=== PATIENT | female | born 1960 | race Caucasian/White ===

== ENCOUNTER → 2017-01-15 | Outpatient (CLI) | payer BC ==
[~2017-01-15] MED LIST: AMLO5TAB4 PO; TRAM50TA2 PO
[2017-01-15 11:49] LABS: ADD SCAN DIFF NO
[2017-01-15 12:04] LABS: BASOPHILS % 0.5 % (0.0-2.0); EOSINOPHILS # 0.1 10^3/ul (0.0-0.5); EOSINOPHILS % 1.2 % (0.0-7.0); HEMOGLOBIN 13.1 g/dl (12.0-16.0); LYMPHOCYTES # 2.8 10^3/ul (0.8-2.9); MEAN CORPUSCULAR HEMOGLOBIN 28.6 pg (29.0-33.0); MEAN CORPUSCULAR VOLUME 89.5 fl (82.0-101.0); MEAN PLATELET VOLUME 10.4 fl (7.4-10.4); MONOCYTE # 0.6 10^3/ul (0.3-0.9); MONOCYTES % 9.2 % (0.0-11.0); NEUTROPHIL # 2.6 10^3/ul (1.6-7.5); NEUTROPHILS % 42.8 % (39.0-77.0); PLATELET COUNT 238 10^3/UL (140-415); RED BLOOD COUNT 4.58 10^6/ul (4.20-5.40); RED CELL DISTRIBUTION WIDTH 13.9 % (11.5-14.5); WHITE BLOOD COUNT 6.1 10^3/ul (4.8-10.8)
[2017-01-15 12:21] LABS: ALBUMIN 4.3 g/dl (3.3-4.9); ALBUMIN/GLOBULIN RATIO 1.19; BILIRUBIN,INDIRECT 0.1 mg/dl (0-1.1); BILIRUBIN,TOTAL 0.1 mg/dl (0.2-1.3); CALCIUM 9.4 mg/dl (8.4-10.2); CHOL/HDL RATIO 2.9 RATIO; CREATININE 0.76 mg/dl (0.44-1.00); POTASSIUM 4.3 mmol/L (3.5-5.1); TOTAL PROTEIN 7.9 g/dl (6.1-8.1)
--- NOTE | 2017-01-15 17:52 | RADRPT ---
PROCEDURE: XR Hand, bilateral. CLINICAL INDICATION: Pain. Fibromyalgia. TECHNIQUE: Right and left hand x-rays, three views. COMPARISON: None. FINDINGS: Right hand: Bony mineralization appears normal. Bony cortices are intact. Joint spaces are well ma intained. There is no evidence of articular/periarticular erosion. Soft tissues are unremarkable. Left hand: Bony mineralization appears normal. Bony cortices are intact. Joint spaces are well tisha ntained. There is no evidence of articular/periarticular erosion. Soft tissues are unremarkable. IMPRESSION: Unremarkable right and left hand x-rays. RPTAT: HLST .Amy Chávez MD, Date Time Electronically viewed and signed by .Amy Chávez MD, on 01/15/2017 17:52 .T/
--- NOTE | 2017-01-15 17:54 | RADRPT ---
PROCEDURE: XR Wrist. CLINICAL INDICATION: Pain. Fibromyalgia. TECHNIQUE: Right and left wrist x-rays, 4 views. COMPARISON: None. FINDINGS: Right wrist: Bone density appears normal. Bony cortices are intact. Joint spaces are well maintai ghulam. There is no evidence of articular/periarticular erosion. Carpal bone alignment is normal. So ft tissues are unremarkable. Left wrist: Bone density appears normal. Bony cortices are intact. Joint spaces are well maintaine d. There is no evidence of articular/periarticular erosion. Carpal bone alignment is normal. Soft tissues are unremarkable. IMPRESSION: Unremarkable right and left wrist x-rays. RPTAT: HLST .Amy Chávez MD, Date Time Electronically viewed and signed by .Amy Chávez MD, on 01/15/2017 17:54 .T/
--- NOTE | 2017-01-15 17:58 | RADRPT ---
PROCEDURE: XR Knee. CLINICAL INDICATION: Pain. Fibromyalgia. TECHNIQUE: Left knee x-rays, three views. COMPARISON: None. FINDINGS: Bony mineralization is normal. Bony cortices are intact. Mild moderate medial compartment joint sp martha narrowing is observed. Tiny osteophytes project from the tibial spines. Soft tissues are unrema rkable. There is no evidence of large joint effusion. IMPRESSION: Degenerative changes of the left knee as evidenced by mild moderate medial compartment joint space n arrowing and tiny tibial spine osteophytes. RPTAT: HLST .Amy Chávez MD, MD Date Time Electronically viewed and signed by .Amy Chávez MD, MD on 01/15/2017 17:57 .T/
--- NOTE | 2017-01-15 17:59 | RADRPT ---
PROCEDURE: XR Knee. CLINICAL INDICATION: Pain. Fibromyalgia. TECHNIQUE: Right knee x-rays, three views. COMPARISON: None. FINDINGS: Bony mineralization is normal. Bony cortices are intact. Mild moderate medial compartment joint sp martha narrowing is observed. Soft tissues are unremarkable. There is no evidence of large joint effus ion. IMPRESSION: Mild moderate medial compartment joint space narrowing. RPTAT: HLST .Amy Chávez MD, MD Date Time Electronically viewed and signed by .Amy Chávez MD, on 01/15/2017 17:58 .T/
[2017-01-16 13:27] LABS: ANA SCREEN NEGATIVE (NEGATIVE)
== END | disposition home or self-care (01) ==
LOC: LAB 10:37
PROVIDERS: ATTEND Internal Medicine
DX: M06.9 Rheumatoid arthritis, unspecified (principal); D64.9 Anemia, unspecified; M79.7 Fibromyalgia; M19.90 Unspecified osteoarthritis, unspecified site
CPT/HCPCS: 73110; 73130; 73560; 80053; 80061; 85025; 85651; 86038; 86430

== ENCOUNTER 2017-04-27 15:13 | Emergency (ER) | payer BC ==
[~2017-04-27] VITALS: Wt 81.0 kg
[2017-04-27] MEDS ORDERED: ONDANSETRON 4 MG INJ IV STA (15:34)
[2017-04-27] MEDS ORDERED: HYDROmorphONE 1 MG/ML SYG IV STA (15:34)
[2017-04-27] MEDS ORDERED: SOD CHLORIDE 0.9% 1,000 ML IV STA (15:34)
[2017-04-27 15:51] LABS: BASOPHIL # 0.1 10^3/ul (0.0-0.1); BASOPHILS % 0.8 % (0.0-2.0); EOSINOPHILS % 0.3 % (0.0-7.0); HEMATOCRIT 44.3 % (37.0-47.0); HEMOGLOBIN 14.1 g/dl (12.0-16.0); LYMPHOCYTES # 2.5 10^3/ul (0.8-2.9); LYMPHOCYTES % 41.3 % (15.0-51.0); MEAN CORPUSCULAR HEMOGLOBIN 28.1 pg (29.0-33.0); MEAN CORPUSCULAR HGB CONC 31.8 g/dl (32.0-37.0); MEAN CORPUSCULAR VOLUME 88.4 fl (82.0-101.0); MONOCYTE # 0.6 10^3/ul (0.3-0.9); MONOCYTES % 10.1 % (0.0-11.0); NEUTROPHIL # 2.9 10^3/ul (1.6-7.5); NEUTROPHILS % 47.2 % (39.0-77.0); PLATELET COUNT 265 10^3/UL (140-415); RED BLOOD COUNT 5.01 10^6/ul (4.20-5.40); RED CELL DISTRIBUTION WIDTH 13.7 % (11.5-14.5); WHITE BLOOD COUNT 6.1 10^3/ul (4.8-10.8)
[2017-04-27 16:20] LABS: ALBUMIN 4.5 g/dl (3.3-4.9); ALBUMIN/GLOBULIN RATIO 1.09; BILIRUBIN,INDIRECT 0.2 mg/dl (0-1.1); BILIRUBIN,TOTAL 0.2 mg/dl (0.2-1.3); CALCIUM 9.5 mg/dl (8.4-10.2); CREATININE 0.85 mg/dl (0.44-1.00); POTASSIUM 4.5 mmol/L (3.5-5.1); TOTAL PROTEIN 8.6 g/dl (6.1-8.1)
[2017-04-27] MEDS ORDERED: SOD CHLORIDE 0.9% 100 ML ONE (16:54)
[2017-04-27] MEDS ORDERED: IOHEXOL 300MG/ML 150 ML BTL ONE (16:54)
--- NOTE | 2017-04-27 17:25 | RADRPT ---
PROCEDURE: CT Abdomen and Pelvis with Contrast CLINICAL INDICATION: Right lower quadrant abdominal pain TECHNIQUE: Transaxial images were obtained through the abdomen and pelvis on a multi-slice scanner following the intravenous administration of contrast. No oral contrast had previously been given. Sagittal and coronal re-formations were subsequently reconstructed. One or more of the following dose reduction techniques were used: - Automated exposure control. - Adjustment of the mA and/or kV according to patient size. - Use of iterative reconstruction technique. Radiation dose: CTDIvol = 14.17 mGy; DLP = 787.38 mGy-cm. COMPARISON: No prior studies are available for comparison. FINDINGS: Lung bases: Minimal discoid atelectasis seen in the posterior sulci. Liver: The liver is mildly enlarged and appears diffusely fatty infiltrated. No discrete mass is id entified. Gallbladder: There is cholelithiasis and the gallbladder is moderately distended but the wall is not thickened. Bile ducts: The intra and extrahepatic bile ducts are normal in caliber. Pancreas: Appears normal with no mass or inflammation evident. Spleen: Normal in size with no focal lesion. Adrenals: Normal with no mass identified. Kidneys, ureters and bladder: A 4 mm nonobstructing nephrolith is seen within the superior pole lisseth x of the right kidney. A 4 mm nonobstructing nephrolith is seen within and inferior pole torres of t he left kidney. There is mild cortical scarring at the inferior pole left kidney. The ureters are not appreciably dilated but there is a 2 mm calcification that possibly represents a nonobstructing ureterolith and within the distal third of the left ureter. The bladder appears unremarkable. Reproductive organs: The uterus is absent and no adnexal mass is identified. Stomach, bowel, and mesentery: The stomach appears unremarkable. There is no evidence of bowel obst ruction or inflammation. Appendix: A normal vermiform appendix is evident. Peritoneum: No free intraperitoneal fluid or air is identified. Aorta: Normal in caliber with no aneurysmal dilatation. IVC: Unremarkable. Lymph nodes: No pathologically enlarged nodes are identified. Osseous structures: The osseous elements appear intact. Soft tissues: Soft tissue density containing coarse calcification is seen at the midline deep subcu taneous fat at the level of the anterior inferior iliac spines. IMPRESSION: 1. There is no evidence of bowel obstruction or inflammation with a normal vermiform appendix ident ified. 2. A 4 mm nonobstructing nephrolith is seen within the superior pole right kidney and a 4 mm nonobs tructing nephrolith is seen within the inferior pole left kidney. There is no evidence of urinary o utflow obstruction. There is a 2 mm calcification in the region of the distal third of the left ure ter possibly representing a nonobstructing ureterolith. The bladder appears unremarkable. 3. Cholelithiasis not associated bile duct dilatation or pancreatic pathology. 4. Hepatomegaly with diffuse fatty infiltration of the liver. 5. Soft tissue density containing coarse calcification measuring approximately 3.5 x 8-0.3 x 1.0 cm is seen within the infraumbilical deep subcutaneous fat at the midline. This may be a sequelae of previous trauma or inflammation. 6. Minimal discoid atelectasis seen in the posterior sulci of the lungs. Physician Nestor Date Time Electronically viewed and signed by Physician Nestor on 04/27/2017 17:24 /
[2017-04-27] MEDS ORDERED: HYDR-902 PO (17:51)
--- NOTE | 2017-04-27 17:55 | ERD ---
ER Documentation Chief Complaint Date/Time DATE: 04/27/17 TIME: 17:53 Chief Complaint DISCOMFORT ON NAVEL AREA, BURNING FEELING, NAUSEA, NO ABD PAIN HPI This is a 56-year-old female who complains of pain around her umbilicus and right lower quadrant since yesterday. She says the pain is burning and feels nauseated but does not have any vomiting diarrhea back pain no fever or loss of appetite. This is the first time she has had these type of symptoms. No chest pain or shortness of breath dysuria or hematuria. ROS All systems reviewed and are negative except as per history of present illness. Medications Home Meds Active Scripts Hydrocodone/Acetaminophen ([place] 10-325 Tablet) 1 Each Tablet, 1 TAB PO Q6H Y for PAIN, #20 TAB Prov:LIVE GROSS DO 04/27/17 Tramadol HCl (Tramadol HCl) 50 Mg Tab, 50 MG PO Q6H Y for PAIN, #60 TAB Prov:BEA RICKS MD 09/24/14 Reported Medications Amlodipine Besylate* (Norvasc*) 5 Mg Tablet, 5 MG PO DAILY, TAB 09/23/14 Allergies Allergies: Coded Allergies: codeine (Verified Allergy, Mild, 09/23/14) meperidine (Verified Allergy, Mild, ITCHING, 09/23/14) NEW ALLERGY PATIENT WANTS ADDED TO LIST PMhx/Soc History of Surgery: Yes (JAVIER,BLADDER SLING, SLING REMOVAL,BTL,OOPHORECTOMY, TUMMY TUCK) Anesthesia Reaction: No Hx Neurological Disorder: No Hx Respiratory Disorders: No Hx Cardiac Disorders: Yes (HTN) Hx Psychiatric Problems: No Hx Miscellaneous Medical Probl: No Hx Alcohol Use: Yes (occassional) Hx Substance Use: No Hx Tobacco Use: Yes (3stick/day) Smoking Status: Never smoker FmHx Family History: No coronary disease Physical Exam Vitals Vital Signs Date Time Temp Pulse Resp B/P Pulse Ox O2 Delivery O2 Flow Rate FiO2 04/27/17 15:17 97.8 96 17 174/91 96 Physical Exam Const: Well-developed, well-nourished Head: Atraumatic, normocephalic Eyes: Normal Conjunctiva, PERRLA, EOMI, normal sclera, no nystagmus ENT: Normal External Ears, Nose and Mouth, moist mucus membranes. Neck: Full range of motion. No meningismus, no lymphadenopathy. Resp: Clear to auscultation bilaterally, no wheezing, rhonchi, rales Cardio: Regular rate and rhythm, no murmurs, S1 S2 present Abd: Soft, mild to moderate tenderness in the right lower quadrant, non distended. Normal bowel sounds, no guarding or rebound, no pulsitile abdominal masses or bruits Skin: No petechiae or rashes, no ecchymosis , no maculopapular rash Back: No midline or flank tenderness Ext: No cyanosis, or edema, FROM x 4, normal inspection, neurovascularly intact x 4 Neur: Awake and alert, STR 5/5 x 4, sensation intact x 4, no focal findings, cerebellum intact Psych: Normal Mood and Affect Result Diagram: 04/27/17 1540 04/27/17 1540 Results 24 hrs Laboratory Tests Test 04/27/17 15:40 White Blood Count 6.110^3/ul Red Blood Count 5.0110^6/ul Hemoglobin 14.1g/dl Hematocrit 44.3% Mean Corpuscular Volume 88.4fl Mean Corpuscular Hemoglobin 28.1pg Mean Corpuscular Hemoglobin Concent 31.8g/dl Red Cell Distribution Width 13.7% Platelet Count 09633^3/UL Mean Platelet Volume 10.0fl Neutrophils % 47.2% Lymphocytes % 41.3% Monocytes % 10.1% Eosinophils % 0.3% Basophils % 0.8% Nucleated Red Blood Cells % 0.0/100WBC Neutrophils # 2.910^3/ul Lymphocytes # 2.510^3/ul Monocytes # 0.610^3/ul Eosinophils # 0.010^3/ul Basophils # 0.110^3/ul Nucleated Red Blood Cells # 0.010^3/ul Sodium Level 143mmol/L Potassium Level 4.5mmol/L Chloride Level 96mmol/L Carbon Dioxide Level 30mmol/L Anion Gap 22 Blood Urea Nitrogen 13mg/dl Creatinine 0.85mg/dl Glucose Level 102mg/dl Calcium Level 9.5mg/dl Total Bilirubin 0.2mg/dl Direct Bilirubin 0.00mg/dl Indirect Bilirubin 0.2mg/dl Aspartate Amino Transf (AST/SGOT) 61IU/L Alanine Aminotransferase (ALT/SGPT) 98IU/L Alkaline Phosphatase 91IU/L Total Protein 8.6g/dl Albumin 4.5g/dl Globulin 4.10g/dl Albumin/Globulin Ratio 1.09 Current Medications Medications (Trade) Dose Ordered Sig/Bety Route PRN Reason Start Time Stop Time Status Last Admin Dose Admin Sodium Chloride (NS) 1,000 ml @ 1,000 mls/hr Q1H STAT IV 04/27/17 15:34 04/27/17 16:33 DC 04/27/17 15:51 Hydromorphone HCl (Dilaudid) 1 mg ONCE STAT IV 04/27/17 15:34 04/27/17 15:35 DC 04/27/17 15:51 Ondansetron HCl (Zofran Inj) 4 mg ONCE STAT IV 04/27/17 15:34 04/27/17 15:35 DC 04/27/17 15:51 IV Flush 10 ml 10 ml STK-MED ONCE .ROUTE 04/27/17 16:54 04/27/17 16:55 DC 04/27/17 17:01 Sodium Chloride (NS) 100 ml @ ud STK-MED ONCE .ROUTE 04/27/17 16:54 04/27/17 16:55 DC 04/27/17 17:01 Iohexol (Omnipaque 300mg/ ml) 150 ml STK-MED ONCE .ROUTE 04/27/17 16:54 04/27/17 16:55 DC 04/27/17 17:01 Procedures/MDM PROCEDURE: CT Abdomen and Pelvis with Contrast CLINICAL INDICATION: Right lower quadrant abdominal pain TECHNIQUE: Transaxial images were obtained through the abdomen and pelvis on a multi-slice scanner following the intravenous administration of contrast. No oral contrast had previously been given. Sagittal and coronal re-formations were subsequently reconstructed. One or more of the following dose reduction techniques were used: - Automated exposure control. - Adjustment of the mA and/or kV according to patient size. - Use of iterative reconstruction technique. Radiation dose: CTDIvol = 14.17 mGy; DLP = 787.38 mGy-cm. COMPARISON: No prior studies are available for comparison. FINDINGS: Lung bases: Minimal discoid atelectasis seen in the posterior sulci. Liver: The liver is mildly enlarged and appears diffusely fatty infiltrated. No discrete mass is identified. Gallbladder: There is cholelithiasis and the gallbladder is moderately distended but the wall is not thickened. Bile ducts: The intra and extrahepatic bile ducts are normal in caliber. Pancreas: Appears normal with no mass or inflammation evident. Spleen: Normal in size with no focal lesion. Adrenals: Normal with no mass identified. Kidneys, ureters and bladder: A 4 mm nonobstructing nephrolith is seen within the superior pole torres of the right kidney. A 4 mm nonobstructing nephrolith is seen within and inferior pole torres of the left kidney. There is mild cortical scarring at the inferior pole left kidney. The ureters are not appreciably dilated but there is a 2 mm calcification that possibly represents a nonobstructing ureterolith and within the distal third of the left ureter. The bladder appears unremarkable. Reproductive organs: The uterus is absent and no adnexal mass is identified. Stomach, bowel, and mesentery: The stomach appears unremarkable. There is no evidence of bowel obstruction or inflammation. Appendix: A normal vermiform appendix is evident. Peritoneum: No free intraperitoneal fluid or air is identified. Aorta: Normal in caliber with no aneurysmal dilatation. IVC: Unremarkable. Lymph nodes: No pathologically enlarged nodes are identified. Osseous structures: The osseous elements appear intact. Soft tissues: Soft tissue density containing coarse calcification is seen at the midline deep subcutaneous fat at the level of the anterior inferior iliac spines. IMPRESSION: 1. There is no evidence of bowel obstruction or inflammation with a normal vermiform appendix identified. 2. A 4 mm nonobstructing nephrolith is seen within the superior pole right kidney and a 4 mm nonobstructing nephrolith is seen within the inferior pole left kidney. There is no evidence of urinary outflow obstruction. There is a 2 mm calcification in the region of the distal third of the left ureter possibly representing a nonobstructing ureterolith. The bladder appears unremarkable. 3. Cholelithiasis not associated bile duct dilatation or pancreatic pathology. 4. Hepatomegaly with diffuse fatty infiltration of the liver. 5. Soft tissue density containing coarse calcification measuring approximately 3.5 x 8-0.3 x 1.0 cm is seen within the infraumbilical deep subcutaneous fat at the midline. This may be a sequelae of previous trauma or inflammation. 6. Minimal discoid atelectasis seen in the posterior sulci of the lungs. Physician Nestor Date Time Electronically viewed and signed by Physician Nestor on 04/27/2017 17:24 RH/ CC: LIVE GROSS DO No evidence of appendicitis. Discussed with the patient that she has gallstones and kidney stones. No evidence of cholecystitis Her pain is not even in the right upper quadrant whatsoever on reexamination. The patient has no signs of bowel obstruction or other pathology. Will observe the patient home conservatively. Told her warning signs to return Departure Diagnosis: Primary Impression: Right lower quadrant abdominal pain Condition: Stable Patient Instructions: Abdominal Pain, Unknown Cause, (Female) LIVE GROSS DO Apr 27, 2017 17:55
[2017-04-27 18:04] VITALS: BP 145/65; PULSE 78; RESP 18; TEMP 98.1
== END 2017-04-27 18:05 | disposition home or self-care (01) ==
LOC: FTE 15:13
DX: R10.31 Right lower quadrant pain (principal); I10 Essential (primary) hypertension; F17.210 Nicotine dependence, cigarettes, uncomplicated
CPT/HCPCS: 36415; 74177; 80053; 85025; 96374; 96375; 99285; J1170; J2405; J7030; Q9967

== ENCOUNTER → 2017-10-20 | Outpatient (CLI) | END | disposition home or self-care (01) ==

== ENCOUNTER → 2017-12-16 | Outpatient (CLI) | END | disposition home or self-care (01) ==

== ENCOUNTER → 2018-04-08 | Outpatient (CLI) | END | disposition home or self-care (01) ==

== ENCOUNTER → 2018-04-20 | Outpatient (CLI) | END | disposition home or self-care (01) ==

== ENCOUNTER → 2018-06-09 | Outpatient (CLI) | END | disposition home or self-care (01) ==

== ENCOUNTER → 2018-07-10 | Outpatient (CLI) | END | disposition home or self-care (01) ==

== ENCOUNTER → 2018-10-16 | Outpatient (CLI) | payer BC ==
[~2018-10-16] MED LIST changes: +HYDR-3980 PO; +cymbalta; +lorazepam; +multivitamin
== END | disposition home or self-care (01) ==
LOC: LAB 11:02
PROVIDERS: ATTEND Internal Medicine
DX: R53.83 Other fatigue (principal); G47.00 Insomnia, unspecified
CPT/HCPCS: 80053; 82306; 82607; 84436; 84443; 85025

== ENCOUNTER 2018-10-20 06:47 | Day surgery (SDC) | payer BC ==
[~2018-10-20] VITALS: Ht 162.6 cm; Wt 87.2 kg
[~2018-10-20 06:47] MED LIST changes: -cymbalta; -lorazepam; -multivitamin
[2018-10-20] MEDS ORDERED: lorazepam (07:48)
[2018-10-20] MEDS ORDERED: cymbalta (07:48)
[2018-10-20] MEDS ORDERED: multivitamin (07:52)
[2018-10-20 07:56] VITALS: BP 138/63; PULSE 74; RESP 19
--- NOTE | 2018-10-20 08:11 | PREAC ---
Date/Time of Note Date/Time of Note DATE: 10/20/18 TIME: 08:10 Anesthesia Eval and Record Evaluation Time Pre-Procedure Interview DATE: 10/20/18 TIME: 08:10 Age 58 Sex female NPO: 8 hrs Preoperative diagnosis abd pain screening Planned procedure EGD colonoscopy Past Medical History Past Medical History: Includes Cardio: HTN Musculoskeletal: Other (fibromyelgia) Renal: Other GI: Obesity Surgery & Anesthesia Issues No known issue Meds Anticoagulation: No Beta Nas within 24 hr: No Reason Beta Nas not given: Pt. not on B-Nas Active Scripts Tramadol HCl (Tramadol HCl) 50 Mg Tab, 50 MG PO Q6H PRN for PAIN, #60 TAB Prov:BEA RICKS MD 09/24/14 Reported Medications [multivitamin] No Conflict Check 10/20/18 [lorazepam] No Conflict Check 10/20/18 [cymbalta] No Conflict Check 10/20/18 Amlodipine Besylate* (Norvasc*) 5 Mg Tablet, 5 MG PO DAILY, TAB 09/23/14 Discontinued Scripts Hydrocodone/Acetaminophen ([place] 10-325 Tablet) 1 Each Tablet, 1 TAB PO Q6H PRN for PAIN, #20 TAB Prov:LIVE GROSS DO 04/27/17 Meds reviewed: Yes Allergies Coded Allergies: codeine (Verified Allergy, Intermediate, numbing of lips, itching, 10/20/18) meperidine (Verified Allergy, Mild, ITCHING, 10/20/18) NEW ALLERGY PATIENT WANTS ADDED TO LIST Allergies Reviewed: Yes Labs/Studies Labs Reviewed: Reviewed by anesthesiologist test: N/A Studies: ECG (sr), CXR (n/a) Pre-procedure Exam Last vitals Vital Signs Date Temp Pulse Resp B/P (MAP) Pulse Ox O2 O2 Flow FiO2 Time Delivery Rate 10/20/18 98.6 74 19 138/63 94 Room Air 07:56 (88) Airway: Adequate mouth opening Mallampati: Mallampati I Teeth: Normal Lung: Normal Heart: Normal ASA Physical Status ASA physical status: 2 Emergency: None Planned Anesthetic General/MAC: MAC Planned Pain Management Parenteral pain med Pre-operative Attestations Prior to commencing anesthesia and surgery, the patient was re-evaluated, there was verification of: *The patient's identity *The results of appropriate recent lab work and preoperative vital signs *The above evaluation not changing prior to induction *Anesthetic plan, risk benefits, alternative and complications discussed with patient/family; questions answered; patient/family understands, accepts and wishes to proceed. FLOYD CISNEROS MD Oct 20, 2018 08:11
[2018-10-20] MEDS ORDERED: PROPOFOL 20 ML ONE ×2 (08:13→09:13)
[2018-10-20] MEDS ORDERED: FENTAnyl 50 MCG/ML VIAL ONE (08:13)
[2018-10-20] MEDS ORDERED: hydrALAzine 20 MG INJ IV PRN (08:30)
[2018-10-20] MEDS ORDERED: LABETALOL HCL 20MG INJ IV PRN (08:30)
[2018-10-20] MEDS ORDERED: ONDANSETRON 4 MG INJ IV PRN (08:30)
--- NOTE | 2018-10-20 09:11 | PAC ---
Date/Time of Note Date/Time of Note DATE: 10/20/18 TIME: 09:11 Post-Anesthesia Notes Post-Anesthesia Note Last documented vital signs Vital Signs Date Temp Pulse Resp B/P (MAP) Pulse Ox O2 O2 Flow FiO2 Time Delivery Rate 10/20/18 98.6 74 19 138/63 94 Room Air 07:56 (88) Activity: WNL Respiratory function: WNL Cardiovascular function: WNL Mental status: Baseline Pain reasonably controlled: Yes Hydration appropriate: Yes Nausea/Vomiting absent: No FLOYD CISNEROS MD Oct 20, 2018 09:11
[2018-10-20 09:22] VITALS: BP 119/62; PULSE 68; RESP 18
== END 2018-10-20 11:06 | disposition home or self-care (01) ==
LOC: GIL 06:47
PROVIDERS: ATTEND Internal Medicine Gastroenterology
DX: Z12.11 Encounter for screening for malignant neoplasm of colon (principal); K29.30 Chronic superficial gastritis without bleeding; K64.8 Other hemorrhoids; I10 Essential (primary) hypertension; E66.9 Obesity, unspecified; Z68.33 Body mass index [BMI] 33.0-33.9, adult
CPT/HCPCS: 43239; 45378; 88305; 88312; J3010

== ENCOUNTER → 2019-02-17 | Outpatient (CLI) | payer BC ==
[~2019-02-17] MED LIST changes: -HYDR-3980 PO; +cymbalta; +lorazepam; +multivitamin
== END | disposition home or self-care (01) ==
LOC: LAB 16:46
PROVIDERS: ATTEND Internal Medicine
DX: E78.5 Hyperlipidemia, unspecified (principal); R73.03 Prediabetes
CPT/HCPCS: 80053; 80061; 83036; 85025